=== PATIENT | female | born 2005 | race Caucasian/White ===

== ENCOUNTER 2024-01-05 11:58 | Outpatient (CLI) | payer MEDICAID, SELFPAY ==
--- NOTE | 2024-01-05 12:15 | CRLHL7_ITS ---
For Patients: As a result of the Cures Act, medical imaging exams and procedure reports are released immediately into your electronic medical record. You may view this report before your referring provider. If you have questions, please contact your health care provider. INDICATION: First trimester scan, establish dates. COMPARISON: None. TECHNIQUE: Real-time skaggs-scale imaging of the pelvis was performed. FINDINGS: Sonographic imaging demonstrates a single living intrauterine gestation. The embryo demonstrates a regular cardiac rate measuring 157 beats per minute. The embryo`s crown-rump length measurement of 7.6 cm corresponds to a gestational age of 13 weeks 5 days with a sonographic due date of 07/07/2024. The yolk sac is not visualized. There are no gross abnormalities noted within the embryo at this early state of development. The gestational sac has a normal appearance. There is no evidence of a perigestational hemorrhage. The amount of fluid within the sac appears appropriate for gestational age. The cervix is closed. The myometrium appears normal. The ovaries are of normal size. There are no suspicious fluid collections noted in the cul-de-sac. IMPRESSION: Single living intrauterine with sonographic gestational age 13 weeks 5 days and sonographic due date of 07/07/2024. Dictated by Yann James MD @ 01/06/2024 12:25:17 PM (Electronically Signed)
== END 2024-01-05 11:59 | disposition home or self-care (01) ==
PROVIDERS: Visit Provider Registered Nurse
DX: Z34.91 Encounter for supervision of normal pregnancy, unspecified, first trimester (principal); Z3A.13 13 weeks gestation of pregnancy
CPT/HCPCS: 76801

== ENCOUNTER 2024-01-05 13:01 | Outpatient (CLI) | payer MEDICAID, SELFPAY ==
--- NOTE | 2024-01-05 15:46 | PC.SOCIAL ---
Discharge planning: linen worker left a message with the pt today at phone number #[phone] asking this worker to call her back. linen worker plans to give her resources for housing since she shared during her OB appointment today that she is experiencing homelessness. linen worker will try calling the pt again tomorrow. linen worker updated the [facility]. Social work to follow-up as needed.
[2024-01-05 21:29] LABS: Chlamydia DNA Amplified* NOT DETECTED (No Detected)
[2024-01-05 22:08] LABS: GC DNA Amplified* DETECTED (No Detected)
--- NOTE | 2024-01-06 14:45 | PC.SOCIAL ---
Addendum entered and electronically signed by HEMANTH Daley 01/06/24 14:59: Social work consult: fish hatchery worker received a call back from the pt. Pt stated that she has been couch hopping for awhile and needs to find permanent housing, especially now that she is . fish hatchery worker gave her information on [facility] for housing resources. Pt plans to go there for help and was thankful for the assistance as she had never heard of [facility] services before. Social work to follow-up as needed. Original Note: Discharge planning: fish hatchery worker attempted to call the pt again today at phone number #[phone] to follow-up on resources for housing, but the pt did not answer her phone. Social work to follow-up as needed.
== END 2024-01-05 13:02 | disposition home or self-care (01) ==
PROVIDERS: Visit Provider Registered Nurse
DX: Z34.91 Encounter for supervision of normal pregnancy, unspecified, first trimester (principal); Z87.898 Personal history of other specified conditions; Z3A.13 13 weeks gestation of pregnancy
CPT/HCPCS: 80306; 83021; 86592; 86703; 86704; 86706; 86762; 86787; 86803; 86850; 86900; 86901; 87086; 87186; 87340; 87491; 87591